=== PATIENT | male | born 1950 | race Caucasian/White ===

== ENCOUNTER 2018-02-09 10:39 | Inpatient (IN) | payer MEDICARE, OTHER ==
[~2018-02-09] VITALS: Ht 175.3 cm; Wt 90.6 kg
--- NOTE | ~2018-02-09 | OP ---
PATIENT NAME: REILLY FULTON MEDICAL RECORD: [id number] :46 LOCATION:D.[facility] D.2306 ADMISSION DATE:02/09/18 SURGEON: ANNE CEDENO MD DATE OF OPERATION: 02/21/2018 PREOPERATIVE DIAGNOSES: 1. Lack of peripheral IV access. 2. Hypotension, on pressor therapy. 3. Ventilatory failure, requiring mechanical ventilation. 4. Alcohol abuse. 5. Confusion. POSTOPERATIVE DIAGNOSES: 1. Lack of peripheral IV access. 2. Hypotension, on pressor therapy. 3. Ventilatory failure requiring mechanical ventilation. 4. Alcohol abuse. 5. Confusion. PROCEDURE: 1. Insertion of right internal jugular triple lumen central venous catheter. 2. Placement of a left radial arterial line for hemodynamic monitoring. SURGEON: Anne Cedeno MD ALARM INSTALLER: None. BLOOD LOSS: Minimal. ANESTHESIA: IV sedation and IV paralytic. The patient is confused. He pulled out his Martinez catheter with the balloon inflated. He is agitated. He is on the ventilator. He will not stop moving. In order to facilitate a more safe insertion of a central venous line as well as an arterial line, I gave the patient IV Diprivan as well IV vecuronium. The IV Diprivan was given first. The entire procedure was performed with the presence of a nurse. OPERATIVE COURSE: The patient was positioned in the Trendelenburg position. The right neck was sterilely prepped and draped. Local anesthetic was used to infiltrate the skin and subcutaneous tissues at the base of the right neck. The right internal jugular vein was percutaneously accessed in an antegrade fashion. A guidewire passed easily. A small skin svitlana was accomplished. A vessel dilator was used to dilate the subcutaneous tract. A 16-cm triple lumen central venous catheter was inserted to the hub. It was sutured in place times 3. All lumens flushed easily and aspirated dark, nonpulsatile blood. The central venous line was then dressed. Attention was then turned to placement of an arterial line. The right wrist was supinated. An Kb's test revealed adequate collateral flow via an ulnar artery. The volar surface of the wrist was sterilely prepped and draped. I attempted to percutaneously access the radial artery and was unsuccessful. I brought onto the sterile field a sterile ultrasound device and even under OPERATIVE REPORT [id number] FULTONREILLY GOTTI ultrasonographic guidance, I was unable to access this very small radial artery. This approach was abandoned. I went around to the left side. The left wrist was supinated. It was sterilely prepped and draped. I could feel a left radial arterial pulse. I percutaneously accessed the radial artery in a retrograde fashion. A guidewire passed easily. A small skin svitlana was accomplished. A long Angiocath type catheter was advanced over the wire. The wire was removed. Pulsatile blood was coming out through the end of the catheter. It was attached to a flush transducer tubing. The arterial line was then sutured in place times 3. A sterile dressing was applied. There was an excellent waveform on the monitor. TRANSINT:[id number] Voice Confirmation ID: [id number] DOCUMENT ID: [id number] ANNE CEDENO MD at 1042 CC: JODEE MELENDEZ MD and BERENICE FARNSWORTH MD [id number] DICTATION DATE: 02/21/18 1540 FURNACE COMBINATION ANALYST: 02/21/18 [address] [facility] [address] [place] [address]
--- NOTE | ~2018-02-09 | CN ---
PATIENT NAME:REILLY FULTON MEDICAL RECORD: [id number] : 46 LOCATION:[facility]2306 ADMIT DATE: 02/09/18 ACCOUNT: [id number] CONSULTING PHYSICIAN: GERI AGUILAR MD REFERRING PHYSICIAN: BERENICE FARNSWORTH MD DATE OF CONSULTATION: 02/16/2018 CONSULT REQUESTING PHYSICIAN: Eliazar Hardy MD REASON FOR CONSULTATION: Acute hypoxic respiratory failure. HISTORY OF PRESENT ILLNESS: Mr. Fulton is a 67-year-old gentleman who was admitted with alcohol intoxication and now his mental status changes and he is in acute hypoxic respiratory failure. The patient also into DTs, he is getting banana bag and his ammonia level was high. REVIEW OF SYSTEMS: Mainly in the history of present illness. PAST MEDICAL HISTORY: 1. Hypertension. 2. Coronary artery disease. 3. Anxiety and depression. 4. Heavy alcoholism. 5. Gastroesophageal reflux disease. PAST SURGICAL HISTORY: 1. Status post pacemaker placement. 2. He has cardiac catheterization and stent placement. PERSONAL AND SOCIAL HISTORY: The patient is a current everyday drinker. He is also a smoker. FAMILY HISTORY: Noncontributory. PHYSICAL EXAMINATION: GENERAL: Now, the patient is very lethargic and he is very sleepy. VITAL SIGNS: The blood pressure 155/105, pulse is 181, respirations 28, temperature 97.2, SpO2 is 94% on 100% nonrebreather. HEENT: Conjunctivae are pink. Sclerae are not icteric. NECK: Neck is supple. No JVD. CHEST: The chest excursion is minimal on both sides. There is a crackle at the right base. HEART: Rhythm regular, normal sound, no murmur. ABDOMEN: Abdomen is soft. Bowel sounds are present. RECTAL: Deferred. EXTREMITIES: No cyanosis, no clubbing. There is 1+ pedal edema. LABORATORY DATA: CBC: WBC 7.3, hemoglobin 12.4, hematocrit 35.8, and platelet count is 129. Chemistry: Sodium 140, potassium 3.6, BUN is 9, creatinine is 1.1, AST is 201, ALT 72, alkaline phosphatase 224. Ammonia level was 69. IMPRESSION: 1. Nhoek-mi-jfetkml hypoxic respiratory failure. 2. Right lower lobe infiltrate with elevated right hemidiaphragm, rule out any obstructive cause. CONSULT REPORT [id number] REILLY FULTON 3. Acute exacerbation of chronic obstructive pulmonary disease. 4. Mental status changes secondary to hepatic encephalopathy. 5. Elevated liver enzymes, possible cirrhosis of the liver. 6. Alcoholism, DTs. 7. Gastroesophageal reflux disease. RECOMMENDATIONS: 1. We will check the CT scan of the chest with contrast. 2. Check the ABG. Continue albuterol/ipratropium nebulizer. 3. Supplemental oxygen. 4. Start empiric Zosyn for questionable aspiration pneumonia. 5. Methylprednisolone IV, Brovana and budesonide nebulizer. Dr. Hardy, thank you for involving me in the care of Mr. Fulton. TRANSINT:[id number] Voice Confirmation ID: [id number] DOCUMENT ID: [id number] GERI AGUILAR MD at 1340 CC: ELIAZAR HARDY MD [id number] DICTATION DATE: 02/16/18 1737 MINERAL SURVEYING TECHNICIAN: 02/16/18 1805 ADM IN [place] [id number] [place] [id number]
--- NOTE | ~2018-02-09 | EC ---
PATIENT:REILLY FULTON DATE OF SERVICE: 02/09/18 SEX: M MEDICAL RECORD: [id number] DATE OF : 46 LOCATION:D[facility] AGE OF PATIENT: 67 ADMISSION DATE: 02/09/18 REFERRING PHYSICIAN: INTERPRETING PHYSICIAN: MICHAEL JEAN MD ECHOCARDIOGRAM REPORT ECHO CHARGES 4 ECHO COMPLETE Date: CLINICAL DIAGNOSIS: TACHYCARDIA - R/O CHF ECHOCARDIOGRAPHIC MEASUREMENTS (adult normal given) AC root (d.<3.7cm) 3.8 cm LV Septum d (<1.2 cm> 1.0 cm Valve Excursion 2.2 cm LV Septum (systole) 1.5 cm Left Atria (s.<4.0cm> 4.3 cm LVPW d(<1.2cm) 1.1 cm RV (d.<2.3cm) 4.4 cm LVPW (sytole) 1.6 cm LV diastole(<5.6CM) 4.9 cm MV E-F(>70mm/sec) cm LV systole 3.2 cm LVOT Diameter 2.1 cm MV exc.(>10mm) cm Est.ejection fraction (50-75%) % DOPPLER: LVIT cm/sec A 44.0 cm/sec E 70.0 cm/sec LA cm/sec RVSP 30.4 mmHg LVOT 89.0 cm/sec AOP1/2T m/s Asc. Ao 108 cm/sec RVOT 33.0 cm/sec RA cm/sec PA 50.0 cm/sec AV Gradient Peak 4.6 mmHg AV Mean 1.7 mmHg AV Area 4.2 cm MV Gradient Peak 2.0 mmHg MV Mean 0.95 mmHg MV Area cm COMMENTS: Receipt And Report Clerk: Maegan KAPADIAOE Cap Coverer: Roney Jean TAPE# PACS Pericardial Effusion N DATE OF SERVICE: 02/21/2018 PROCEDURE: Transthoracic echocardiogram. FINDINGS: 1. The left ventricle has areas of hypokinesis and dyskinesis in the mid anterior and mid posterior segments. The patient has overall ejection fraction of 25%. 2. The left atrium is mildly dilated. 3. Aortic valve is normal. ECHOCARDIOGRAM REPORT [id number] REILLY FULTON 4. The mitral valve has normal structure and function. 5. The tricuspid valve has trace tricuspid regurgitation. The RVSP appears to be 40-50 mmHg. 6. The right ventricle is severely dilated and hypokinetic and there is a pacer artifact in the right ventricle appears. 7. The right atrium appears to be normal size to mildly dilated. IMPRESSION: The patient has evidence of cardiomyopathy, also evidence of pulmonary hypertension and dilatation of the right ventricle. TRANSINT:[id number] Voice Confirmation ID: [id number] DOCUMENT ID: [id number] 02/26/2018 Edited to correct date of service, dm. MICHAEL JEAN MD at 1426 CC: [id number] DICTATION DATE: 02/22/18 1145 STUDENT ACCOUNTS MANAGER: 02/22/18 1201 DIS IN 02/28/18 [place] [id number] [place] [address]
--- NOTE | ~2018-02-09 | OP ---
PATIENT NAME: REILLY FULTON MEDICAL RECORD: [id number] :46 LOCATION:[facility] D.2306 ADMISSION DATE:02/09/18 SURGEON: ANNE BROWN MD DATE OF OPERATION: 02/18/2018 SURGEON: Anne Brown MD ANESTHESIA: Local plus MAC by Mike Mo CRNA. PREOPERATIVE DIAGNOSIS: Urinary retention, inability to be catheterized. PROCEDURE: Cystoscopy, bladder clot evacuation, Martinez catheter insertion over a guidewire. FINDINGS: Proximal urethral tear. Nonobstructive prostate. Blood clots in the bladder. No bladder tumors. Single ureteral orifices bilaterally. ESTIMATED BLOOD LOSS: None. CLINICAL HISTORY: This is a 67-year-old male, who is an alcoholic. He came in intoxicated to the hospital. He has now delirium tremens as well as liver cirrhosis with ascites and hepatic encephalopathy. In his confusion in the intensive care unit, he pulled his Martinez catheter with the balloon inflated. The ICU nursing staff attempted to place a Martinez catheter back in, but it is not draining and it is very bloody. When they scanned his bladder, his bladder volume was 800 mL and there was a concern that he may rupture his bladder. Urology was therefore called for an emergent consultation. His bladder is palpable and percussible up to the umbilicus. He does have ascites also. He has been getting tube feedings through an NG tube. These were held and I actually tried to put the NG tube to suction to decrease the amount of food in the stomach. He does also have aspiration pneumonia as a preexisting condition and therefore, the aspiration risk is high. He does not have any relative that we can speak with and as he is not in the mental condition where he can give consent, we had to do this procedure as an emergency. He is already on antibiotics through the intensive care unit and we did not give him any further antibiotics. DESCRIPTION OF PROCEDURE: The patient was placed on the cystoscopy table and prepped and draped. He was given some IV sedation via anesthesia, a 21-Marshallese cystoscope with 30-degree lens was used for visualization. There is a large tear in the ventral urethra just prior to the bulbar urethra. I managed to get into the true lumen using the cystoscope. The prostatic urethra was nonobstructive. He does have a somewhat elevated bladder neck. Going into the bladder, a large quantity of blood clots were seen. These were removed using the Deneen evacuator. A Sensor wire was then placed into the bladder through the cystoscope. The scope was then removed, leaving the wire in place. A 16-Marshallese [place] Martinez catheter was inserted into the bladder over the wire. The balloon was inflated with 10 mL of sterile water. The Sensor wire was then removed entirely. The balloon catheter was put to bag drainage. The patient will be transferred back to the intensive care unit. TRANSINT:[id number] Voice Confirmation ID: [id number] DOCUMENT ID: [id number] OPERATIVE REPORT [id number] REILLY FULTON, ANNE Rodriguez MD at 1428 CC: [id number] DICTATION DATE: 02/18/18 1225 EQUIPMENT DRIVER: 02/18/18 1251 ADM IN [place] [id number] [place] [address]
[2018-02-09 11:28] LABS: BASOPHILS 0.1 % (0-2); EOSINOPHILS 0.7 % (0-7); HEMATOCRIT 36.7 % (42.0-54.0); HEMOGLOBIN 13.5 g/dL (13.5-17.5); IMMATURE GRANULOCYTES 0.4 % (0-5); LYMPHOCYTES 7.5 % (15-50); MCH 39.5 pg (26.0-34.0); MCHC 36.8 g/dL (31.0-37.0); MCV 107.3 fL (80.0-100.0); MEAN PLATELET VOLUME 10.6 fL (7.4-10.4); MONOCYTES 5.7 % (2-11); NEUTROPHILS 85.6 % (40-80); PLATELET COUNT 156 10x3/uL (130-400); RBC 3.42 10x6/uL (4.20-6.10); RDW 14.3 % (11.5-14.5)
[2018-02-09 11:38] LABS: INR 1.65 (0.85-1.17)
[2018-02-09 11:42] LABS: ALKALINE PHOSPHATASE 340 U/L (46-116); ALT (SGPT) 41 U/L (10-68); BILIRUBIN - TOTAL 2.32 mg/dL (0.2-1.3); CALC OSMOLALITY 243 mosm/kg (275-300); CALCIUM 7.9 mg/dL (8.5-10.1); CREATININE - SERUM 0.9 mg/dL (0.6-1.3); GLUCOSE 122 mg/dL (74-106); MAGNESIUM - SERUM 1.2 mg/dL (1.8-2.4); POTASSIUM - SERUM 3.8 mmol/L (3.5-5.1); PROTEIN - SERUM 6.9 g/dL (6.4-8.2); SODIUM 122 mmol/L (136-145); UREA NITROGEN 5 mg/dL (7-18); eGFR NON AFRICAN AMERICAN 89 mL/min (90-120)
[2018-02-09 11:49] LABS: CHLORIDE - SERUM 85 mmol/L (98-107)
[2018-02-10] VITALS (7 sets, daily range): BP systolic 86–113; BP diastolic 54–72; BMI 25.1
[2018-02-10 12:51] LABS: % SATURATION 100 % (15-55); IRON 82 ug/dl (35-150); TOTAL IRON BIND CAPACITY 82 ug/dl (260-445); UNSAT IRON BIND CAPACITY 0 ug/dl (150-375)
[2018-02-10 13:13] LABS: PHOSPHOROUS 2.6 mg/dL (2.5-4.9)
[2018-02-11 04:29] VITALS: BP 101/47
[2018-02-11 06:08] LABS: BASOPHILS 0.2 % (0-2); EOSINOPHILS 0.8 % (0-7); HEMATOCRIT 33.6 % (42.0-54.0); HEMOGLOBIN 12.1 g/dL (13.5-17.5); IMMATURE GRANULOCYTES 0.4 % (0-5); MCH 38.5 pg (26.0-34.0); MEAN PLATELET VOLUME 10.8 fL (7.4-10.4); MONOCYTES 6.8 % (2-11); NEUTROPHILS 81.8 % (40-80); PLATELET COUNT 141 10x3/uL (130-400); RBC 3.14 10x6/uL (4.20-6.10); RDW 14.3 % (11.5-14.5); WBC 11.1 10x3/uL (4.8-10.8)
[2018-02-11 06:09] LABS: INR 1.41 (0.85-1.17); PROTIME 16.7 SECONDS (11.6-15.0)
[2018-02-11 06:16] LABS: ALBUMIN 1.6 g/dL (3.4-5.0); ALKALINE PHOSPHATASE 273 U/L (46-116); ALT (SGPT) 37 U/L (10-68); BILIRUBIN - TOTAL 2.38 mg/dL (0.2-1.3); CALCIUM 7.8 mg/dL (8.5-10.1); CARBON DIOXIDE 29.2 mmol/L (21.0-32.0); CHLORIDE - SERUM 93 mmol/L (98-107); CREATININE - SERUM 0.8 mg/dL (0.6-1.3); GLUCOSE 103 mg/dL (74-106); MAGNESIUM - SERUM 1.5 mg/dL (1.8-2.4); PHOSPHOROUS 2.7 mg/dL (2.5-4.9); PROTEIN - SERUM 5.8 g/dL (6.4-8.2); SODIUM 127 mmol/L (136-145); eGFR NON AFRICAN AMERICAN > 90 mL/min (90-120)
[2018-02-11 06:17] LABS: CALC OSMOLALITY 252 mosm/kg (275-300); UREA NITROGEN 7 mg/dL (7-18)
[2018-02-11 08:19] LABS: FOLATE (FOLIC ACID) - SERUM 2.4 ng/mL (>3.0)
[2018-02-11 09:11] VITALS: BP 119/78
[2018-02-11 11:18] LABS: HEPATITIS C ANTIBODY 0.1 (0.0-0.9)
[2018-02-11 12:46] VITALS: BP 121/71
[2018-02-11 16:46] VITALS: BP 89/42
[2018-02-11 21:09] VITALS: BP 136/90
[2018-02-12 04:42] VITALS: BP 148/84
[2018-02-12 05:51] LABS: BASOPHILS 0.3 % (0-2); EOSINOPHILS 1.2 % (0-7); HEMATOCRIT 33.8 % (42.0-54.0); HEMOGLOBIN 11.9 g/dL (13.5-17.5); IMMATURE GRANULOCYTES 0.3 % (0-5); LYMPHOCYTES 13.7 % (15-50); MCHC 35.2 g/dL (31.0-37.0); MEAN PLATELET VOLUME 10.8 fL (7.4-10.4); MONOCYTES 7.2 % (2-11); NEUTROPHILS 77.3 % (40-80); PLATELET COUNT 149 10x3/uL (130-400); RBC 3.13 10x6/uL (4.20-6.10); RDW 14.7 % (11.5-14.5); WBC 9.5 10x3/uL (4.8-10.8)
[2018-02-12 06:05] LABS: ALBUMIN 1.7 g/dL (3.4-5.0); ALKALINE PHOSPHATASE 284 U/L (46-116); ALT (SGPT) 46 U/L (10-68); BILIRUBIN - TOTAL 2.09 mg/dL (0.2-1.3); CALC OSMOLALITY 258 mosm/kg (275-300); CALCIUM 7.8 mg/dL (8.5-10.1); CHLORIDE - SERUM 96 mmol/L (98-107); CREATININE - SERUM 0.9 mg/dL (0.6-1.3); GLUCOSE 91 mg/dL (74-106); MAGNESIUM - SERUM 1.8 mg/dL (1.8-2.4); PHOSPHOROUS 2.7 mg/dL (2.5-4.9); PROTEIN - SERUM 5.9 g/dL (6.4-8.2); SODIUM 130 mmol/L (136-145); UREA NITROGEN 7 mg/dL (7-18); eGFR NON AFRICAN AMERICAN 89 mL/min (90-120)
[2018-02-12 06:06] LABS: POTASSIUM - SERUM 3.8 mmol/L (3.5-5.1)
[2018-02-12 06:13] LABS: INR 1.34 (0.85-1.17); PROTIME 16.1 SECONDS (11.6-15.0)
[2018-02-12 09:37] VITALS: BP 121/75
[2018-02-12 17:05] VITALS: BP 93/65
[2018-02-12 21:39] VITALS: BP 128/87
[2018-02-13] MEDS ORDERED: FUROSEMIDE20 MG PO (02:40)
[2018-02-13 05:32] LABS: BASOPHILS 0.4 % (0-2); EOSINOPHILS 1.2 % (0-7); HEMATOCRIT 31.3 % (42.0-54.0); HEMOGLOBIN 11.4 g/dL (13.5-17.5); IMMATURE GRANULOCYTES 0.3 % (0-5); MCHC 36.4 g/dL (31.0-37.0); MCV 107.2 fL (80.0-100.0); MEAN PLATELET VOLUME 10.3 fL (7.4-10.4); MONOCYTES 8.2 % (2-11); NEUTROPHILS 75.9 % (40-80); PLATELET COUNT 118 10x3/uL (130-400); RBC 2.92 10x6/uL (4.20-6.10); RDW 14.8 % (11.5-14.5); WBC 7.6 10x3/uL (4.8-10.8)
[2018-02-13 05:34] VITALS: BP 134/74
[2018-02-13 05:38] LABS: INR 1.42 (0.85-1.17); PROTIME 16.9 SECONDS (11.6-15.0)
[2018-02-13 05:51] LABS: ALBUMIN 1.6 g/dL (3.4-5.0); ALKALINE PHOSPHATASE 239 U/L (46-116); ALT (SGPT) 53 U/L (10-68); CALC OSMOLALITY 261 mosm/kg (275-300); CALCIUM 7.7 mg/dL (8.5-10.1); CARBON DIOXIDE 26.2 mmol/L (21.0-32.0); CHLORIDE - SERUM 99 mmol/L (98-107); CREATININE - SERUM 0.7 mg/dL (0.6-1.3); GLUCOSE 88 mg/dL (74-106); MAGNESIUM - SERUM 1.7 mg/dL (1.8-2.4); PHOSPHOROUS 2.8 mg/dL (2.5-4.9); POTASSIUM - SERUM 3.6 mmol/L (3.5-5.1); PROTEIN - SERUM 5.6 g/dL (6.4-8.2); SODIUM 132 mmol/L (136-145); UREA NITROGEN 8 mg/dL (7-18); eGFR NON AFRICAN AMERICAN > 90 mL/min (90-120)
[2018-02-13 08:09] VITALS: BP 134/90
[2018-02-13 12:52] VITALS: BP 104/71
[2018-02-13 13:30] VITALS: BMI 25.1
[2018-02-13 16:55] VITALS: BP 135/83
[2018-02-13 22:49] VITALS: BP 122/85
[2018-02-14 02:50] VITALS: BP 111/81
[2018-02-14 05:04] LABS: BASOPHILS 0.3 % (0-2); EOSINOPHILS 1.2 % (0-7); HEMOGLOBIN 12.1 g/dL (13.5-17.5); IMMATURE GRANULOCYTES 0.1 % (0-5); LYMPHOCYTES 14.5 % (15-50); MCH 38.5 pg (26.0-34.0); MCHC 35.6 g/dL (31.0-37.0); MCV 108.3 fL (80.0-100.0); MEAN PLATELET VOLUME 10.2 fL (7.4-10.4); NEUTROPHILS 75.9 % (40-80); PLATELET COUNT 124 10x3/uL (130-400); RBC 3.14 10x6/uL (4.20-6.10); RDW 15.2 % (11.5-14.5); WBC 7.4 10x3/uL (4.8-10.8)
[2018-02-14 05:32] LABS: ALBUMIN 1.8 g/dL (3.4-5.0); ALKALINE PHOSPHATASE 254 U/L (46-116); ALT (SGPT) 65 U/L (10-68); BILIRUBIN - TOTAL 2.07 mg/dL (0.2-1.3); CALC OSMOLALITY 263 mosm/kg (275-300); CARBON DIOXIDE 26.9 mmol/L (21.0-32.0); CHLORIDE - SERUM 97 mmol/L (98-107); GLUCOSE 92 mg/dL (74-106); INR 1.49 (0.85-1.17); MAGNESIUM - SERUM 1.7 mg/dL (1.8-2.4); POTASSIUM - SERUM 3.7 mmol/L (3.5-5.1); PROTEIN - SERUM 6.1 g/dL (6.4-8.2); PROTIME 17.5 SECONDS (11.6-15.0); SODIUM 133 mmol/L (136-145); UREA NITROGEN 6 mg/dL (7-18); eGFR NON AFRICAN AMERICAN 89 mL/min (90-120)
[2018-02-14 05:33] LABS: CREATININE - SERUM 0.9 mg/dL (0.6-1.3)
[2018-02-14 05:54] VITALS: BP 140/89
[2018-02-14 07:41] VITALS: BP 124/74
[2018-02-14 11:10] VITALS: BP 124/74
[2018-02-14 15:16] VITALS: BP 126/72
[2018-02-14 22:24] VITALS: BP 139/89
[2018-02-15 02:24] VITALS: BP 134/74
[2018-02-15 05:22] LABS: ALBUMIN 1.8 g/dL (3.4-5.0); ALKALINE PHOSPHATASE 235 U/L (46-116); ALT (SGPT) 68 U/L (10-68); CALC OSMOLALITY 274 mosm/kg (275-300); CALCIUM 8.1 mg/dL (8.5-10.1); CARBON DIOXIDE 26.2 mmol/L (21.0-32.0); CHLORIDE - SERUM 103 mmol/L (98-107); CREATININE - SERUM 0.9 mg/dL (0.6-1.3); GLUCOSE 117 mg/dL (74-106); PHOSPHOROUS 3.1 mg/dL (2.5-4.9); POTASSIUM - SERUM 3.8 mmol/L (3.5-5.1); PROTEIN - SERUM 6.2 g/dL (6.4-8.2); SODIUM 138 mmol/L (136-145); eGFR NON AFRICAN AMERICAN 89 mL/min (90-120)
[2018-02-15 05:23] LABS: UREA NITROGEN 8 mg/dL (7-18)
[2018-02-15 05:24] LABS: BASOPHILS 0.3 % (0-2); EOSINOPHILS 0.9 % (0-7); HEMATOCRIT 35.4 % (42.0-54.0); HEMOGLOBIN 12.5 g/dL (13.5-17.5); IMMATURE GRANULOCYTES 0.1 % (0-5); LYMPHOCYTES 13.6 % (15-50); MCH 38.5 pg (26.0-34.0); MCHC 35.3 g/dL (31.0-37.0); MCV 108.9 fL (80.0-100.0); MEAN PLATELET VOLUME 10.2 fL (7.4-10.4); MONOCYTES 7.8 % (2-11); NEUTROPHILS 77.3 % (40-80); PLATELET COUNT 138 10x3/uL (130-400); RBC 3.25 10x6/uL (4.20-6.10); RDW 15.2 % (11.5-14.5); WBC 8.7 10x3/uL (4.8-10.8)
[2018-02-15 05:25] VITALS: BP 138/68
[2018-02-15 05:26] LABS: INR 1.43 (0.85-1.17)
[2018-02-15 08:00] VITALS: BP 113/71
[2018-02-15 11:30] VITALS: BP 114/71
[2018-02-15 15:30] VITALS: BP 112/80
[2018-02-15 22:17] VITALS: BP 111/88
[2018-02-16] VITALS (10 sets, daily range): BP systolic 111–155; BP diastolic 80–105
[2018-02-16 06:05] LABS: BASOPHILS 0.3 % (0-2); HEMATOCRIT 35.8 % (42.0-54.0); HEMOGLOBIN 12.4 g/dL (13.5-17.5); IMMATURE GRANULOCYTES 0.3 % (0-5); LYMPHOCYTES 14.8 % (15-50); MCHC 34.6 g/dL (31.0-37.0); MCV 109.8 fL (80.0-100.0); MEAN PLATELET VOLUME 10.5 fL (7.4-10.4); MONOCYTES 8.6 % (2-11); PLATELET COUNT 129 10x3/uL (130-400); RBC 3.26 10x6/uL (4.20-6.10); RDW 15.6 % (11.5-14.5); WBC 7.3 10x3/uL (4.8-10.8)
[2018-02-16 06:34] LABS: ALBUMIN 1.9 g/dL (3.4-5.0); ANION GAP 12.2 mmol/L (8-16); BILIRUBIN - TOTAL 1.9 mg/dL (0.2-1.3); CALCIUM 8.3 mg/dL (8.5-10.1); CARBON DIOXIDE 26.4 mmol/L (21.0-32.0); CREATININE - SERUM 1.1 mg/dL (0.6-1.3); POTASSIUM - SERUM 3.6 mmol/L (3.5-5.1); PROTEIN - SERUM 6.3 g/dL (6.4-8.2)
[2018-02-16 18:53] LABS: APPEARANCE HAZY (CLEAR); COLOR AMBER (YELLOW)
[2018-02-16 18:54] LABS: BILIRUBIN NEGATIVE (NEGATIVE); GLUCOSE NEGATIVE (NEGATIVE); KETONE NEGATIVE (NEGATIVE); NITRITE NEGATIVE (NEGATIVE); PROTEIN NEGATIVE (NEGATIVE); UROBILINOGEN NORMAL (NORMAL)
[2018-02-16 18:55] LABS: AMORPHOUS SEDIMENT <1+ /lpf (NONE SEEN); BACTERIA MANY /hpf (NONE SEEN); WHITE CELLS - URINE 0-5 /hpf (0-5)
[2018-02-17] VITALS (24 sets, daily range): BP systolic 95–159; BP diastolic 66–109; Ht 175.3 cm; Wt 90.6 kg
[2018-02-17 04:16] LABS: BASOPHILS 0 % (0-2); EOSINOPHILS 0 % (0-7); HEMATOCRIT 33.9 % (42.0-54.0); HEMOGLOBIN 11.8 g/dL (13.5-17.5); IMMATURE GRANULOCYTES 0.2 % (0-5); LYMPHOCYTES 2.9 % (15-50); MCH 38.2 pg (26.0-34.0); MCHC 34.8 g/dL (31.0-37.0); MCV 109.7 fL (80.0-100.0); MEAN PLATELET VOLUME 10.7 fL (7.4-10.4); MONOCYTES 2.9 % (2-11); PLATELET COUNT 108 10x3/uL (130-400); RBC 3.09 10x6/uL (4.20-6.10); RDW 15.7 % (11.5-14.5)
[2018-02-17 04:22] LABS: WBC 12.6 10x3/uL (4.8-10.8)
[2018-02-17 04:38] LABS: ALBUMIN 1.8 g/dL (3.4-5.0); ANION GAP 14.8 mmol/L (8-16); BILIRUBIN - TOTAL 2.41 mg/dL (0.2-1.3); CALCIUM 8.2 mg/dL (8.5-10.1); CARBON DIOXIDE 26.1 mmol/L (21.0-32.0); CREATININE - SERUM 1.1 mg/dL (0.6-1.3); POTASSIUM - SERUM 3.9 mmol/L (3.5-5.1); PROTEIN - SERUM 6.2 g/dL (6.4-8.2)
[2018-02-18] VITALS (27 sets, daily range): BP systolic 116–154; BP diastolic 83–111
[2018-02-18 04:37] LABS: BASOPHILS 0.1 % (0-2); EOSINOPHILS 0 % (0-7); HEMOGLOBIN 12.7 g/dL (13.5-17.5); IMMATURE GRANULOCYTES 0.2 % (0-5); LYMPHOCYTES 3.3 % (15-50); MCH 38.1 pg (26.0-34.0); MCHC 34.3 g/dL (31.0-37.0); MCV 111.1 fL (80.0-100.0); MEAN PLATELET VOLUME 10.3 fL (7.4-10.4); MONOCYTES 2.8 % (2-11); NEUTROPHILS 93.6 % (40-80); RBC 3.33 10x6/uL (4.20-6.10); RDW 15.9 % (11.5-14.5); WBC 13.6 10x3/uL (4.8-10.8)
[2018-02-18 04:41] LABS: PLATELET COUNT 138 10x3/uL (130-400)
[2018-02-18 05:02] LABS: ALBUMIN 1.9 g/dL (3.4-5.0); ANION GAP 13.9 mmol/L (8-16); BILIRUBIN - TOTAL 1.8 mg/dL (0.2-1.3); CALCIUM 8.3 mg/dL (8.5-10.1); CARBON DIOXIDE 26.2 mmol/L (21.0-32.0); CHOL - HDL RATIO 10.5 ratio (2.3-4.9); CREATININE - SERUM 1.4 mg/dL (0.6-1.3); LDL-HDL RATIO 8.2 ratio (1.5-3.5); POTASSIUM - SERUM 3.1 mmol/L (3.5-5.1); PROTEIN - SERUM 6.7 g/dL (6.4-8.2); THYROID STIMULATING HORMONE 13.91 uIU/mL (0.36-3.74)
[2018-02-19] VITALS (23 sets, daily range): BP systolic 102–151; BP diastolic 58–99
[2018-02-19 04:38] LABS: BASOPHILS 0 % (0-2); EOSINOPHILS 0 % (0-7); HEMATOCRIT 40.6 % (42.0-54.0); HEMOGLOBIN 13.6 g/dL (13.5-17.5); IMMATURE GRANULOCYTES 0.2 % (0-5); LYMPHOCYTES 2.9 % (15-50); MCHC 33.5 g/dL (31.0-37.0); MEAN PLATELET VOLUME 10.7 fL (7.4-10.4); MONOCYTES 3.3 % (2-11); NEUTROPHILS 93.6 % (40-80); PLATELET COUNT 139 10x3/uL (130-400); RBC 3.58 10x6/uL (4.20-6.10); RDW 15.9 % (11.5-14.5); WBC 13.1 10x3/uL (4.8-10.8)
[2018-02-19 04:42] LABS: MCV 113.4 fL (80.0-100.0)
[2018-02-19 04:47] LABS: INR 1.35 (0.85-1.17); PROTIME 16.2 SECONDS (11.6-15.0)
[2018-02-19 05:02] LABS: ALBUMIN 1.9 g/dL (3.4-5.0); ANION GAP 12.5 mmol/L (8-16); BILIRUBIN - TOTAL 1.5 mg/dL (0.2-1.3); CALCIUM 8.4 mg/dL (8.5-10.1); CARBON DIOXIDE 27.6 mmol/L (21.0-32.0); CREATININE - SERUM 1.2 mg/dL (0.6-1.3); MAGNESIUM - SERUM 2.8 mg/dL (1.8-2.4); POTASSIUM - SERUM 4.1 mmol/L (3.5-5.1); PROTEIN - SERUM 6.9 g/dL (6.4-8.2)
[2018-02-19 06:14] LABS: FOLATE (FOLIC ACID) - SERUM >20.0 ng/mL (>3.0)
[2018-02-20] VITALS (25 sets, daily range): BP systolic 87–127; BP diastolic 68–99
[2018-02-20 03:13] LABS: BASOPHILS 0.1 % (0-2); EOSINOPHILS 0.1 % (0-7); HEMATOCRIT 39.5 % (42.0-54.0); IMMATURE GRANULOCYTES 0.3 % (0-5); LYMPHOCYTES 6.2 % (15-50); MCH 37.7 pg (26.0-34.0); MCHC 32.9 g/dL (31.0-37.0); MCV 114.5 fL (80.0-100.0); MEAN PLATELET VOLUME 10.8 fL (7.4-10.4); MONOCYTES 5.4 % (2-11); NEUTROPHILS 87.9 % (40-80); PLATELET COUNT 133 10x3/uL (130-400); RBC 3.45 10x6/uL (4.20-6.10); RDW 16.4 % (11.5-14.5); WBC 12.3 10x3/uL (4.8-10.8)
[2018-02-20 03:28] LABS: ALBUMIN 1.8 g/dL (3.4-5.0); ANION GAP 11.4 mmol/L (8-16); BILIRUBIN - TOTAL 1.28 mg/dL (0.2-1.3); CALCIUM 8.6 mg/dL (8.5-10.1); CARBON DIOXIDE 30.1 mmol/L (21.0-32.0); CREATININE - SERUM 1.2 mg/dL (0.6-1.3); POTASSIUM - SERUM 4.5 mmol/L (3.5-5.1); PROTEIN - SERUM 6.4 g/dL (6.4-8.2)
[2018-02-21] VITALS (53 sets, daily range): BP systolic 79–134; BP diastolic 58–95
[2018-02-21 03:36] LABS: BASOPHILS 0.1 % (0-2); EOSINOPHILS 0.3 % (0-7); HEMATOCRIT 41.2 % (42.0-54.0); IMMATURE GRANULOCYTES 0.6 % (0-5); MCH 38.4 pg (26.0-34.0); MCV 112.9 fL (80.0-100.0); MEAN PLATELET VOLUME 11.1 fL (7.4-10.4); MONOCYTES 5.3 % (2-11); NEUTROPHILS 86.7 % (40-80); PLATELET COUNT 126 10x3/uL (130-400); RBC 3.65 10x6/uL (4.20-6.10); RDW 16.2 % (11.5-14.5); WBC 14.4 10x3/uL (4.8-10.8)
[2018-02-21 03:41] LABS: INR 1.31 (0.85-1.17); PROTIME 15.8 SECONDS (11.6-15.0)
[2018-02-21 03:53] LABS: ALBUMIN 1.7 g/dL (3.4-5.0); ANION GAP 7.7 mmol/L (8-16); BILIRUBIN - TOTAL 1.31 mg/dL (0.2-1.3); CALCIUM 8.3 mg/dL (8.5-10.1); CARBON DIOXIDE 29.3 mmol/L (21.0-32.0); CREATININE - SERUM 1.1 mg/dL (0.6-1.3); PROTEIN - SERUM 6.5 g/dL (6.4-8.2)
[2018-02-21 06:40] LABS: PHOSPHOROUS 1.6 mg/dL (2.5-4.9)
[2018-02-21 11:43] LABS: CKMB 1.4 U/L (0.0-3.6); CREATINE KINASE 31 UL (21-232)
[2018-02-21 11:46] LABS: TROPONIN-I 0.174 ng/mL (0.000-0.060)
[2018-02-22] VITALS (83 sets, daily range): BP systolic 87–155; BP diastolic 51–114
[2018-02-22 04:37] LABS: BASOPHILS 0.1 % (0-2); EOSINOPHILS 0 % (0-7); HEMATOCRIT 37.1 % (42.0-54.0); HEMOGLOBIN 12.5 g/dL (13.5-17.5); IMMATURE GRANULOCYTES 0.9 % (0-5); LYMPHOCYTES 4.8 % (15-50); MCH 37.8 pg (26.0-34.0); MCHC 33.7 g/dL (31.0-37.0); MCV 112.1 fL (80.0-100.0); MEAN PLATELET VOLUME 11.5 fL (7.4-10.4); MONOCYTES 4.6 % (2-11); NEUTROPHILS 89.6 % (40-80); PLATELET COUNT 146 10x3/uL (130-400); RBC 3.31 10x6/uL (4.20-6.10); RDW 16.2 % (11.5-14.5)
[2018-02-22 04:52] LABS: INR 1.44 (0.85-1.17)
[2018-02-22 04:55] LABS: ALBUMIN 1.7 g/dL (3.4-5.0); ANION GAP 13.9 mmol/L (8-16); BILIRUBIN - TOTAL 1.39 mg/dL (0.2-1.3); CARBON DIOXIDE 23.5 mmol/L (21.0-32.0); CREATININE - SERUM 1.4 mg/dL (0.6-1.3); MAGNESIUM - SERUM 2.7 mg/dL (1.8-2.4); POTASSIUM - SERUM 4.4 mmol/L (3.5-5.1)
[2018-02-22 16:32] LABS: PROTEIN - BODY FLUID 0.8 G/DL
[2018-02-22 16:56] LABS: MACROPHAGES BF 10 %; MESOTHELIALS BF 48 %; NEUT - BF 21 %
[2018-02-23] VITALS (51 sets, daily range): BP systolic 75–140; BP diastolic 43–75
[2018-02-23 06:30] LABS: BILIRUBIN - TOTAL 1.19 mg/dL (0.2-1.3); CALCIUM 7.7 mg/dL (8.5-10.1); CARBON DIOXIDE 24.9 mmol/L (21.0-32.0); CREATININE - SERUM 1.5 mg/dL (0.6-1.3); MAGNESIUM - SERUM 3.1 mg/dL (1.8-2.4); PROTEIN - SERUM 5.4 g/dL (6.4-8.2)
[2018-02-23 06:41] LABS: ALBUMIN 2.2 g/dL (3.4-5.0); ANION GAP 14.7 mmol/L (8-16); POTASSIUM - SERUM 3.6 mmol/L (3.5-5.1)
[2018-02-23 07:02] LABS: BASOPHILS 0 % (0-2); EOSINOPHILS 0 % (0-7); HEMOGLOBIN 10.3 g/dL (13.5-17.5); IMMATURE GRANULOCYTES 0.9 % (0-5); LYMPHOCYTES 6.2 % (15-50); MCH 37.3 pg (26.0-34.0); MCHC 33.2 g/dL (31.0-37.0); MCV 112.3 fL (80.0-100.0); MEAN PLATELET VOLUME 11.5 fL (7.4-10.4); MONOCYTES 7.1 % (2-11); NEUTROPHILS 85.8 % (40-80); PLATELET COUNT 61 10x3/uL (130-400); RBC 2.76 10x6/uL (4.20-6.10); RDW 16.7 % (11.5-14.5); WBC 5.7 10x3/uL (4.8-10.8)
[2018-02-23 08:26] LABS: PLATELET ESTIMATE DECREASED
[2018-02-24] VITALS (24 sets, daily range): BP systolic 76–124; BP diastolic 45–73
[2018-02-24 04:39] LABS: BASOPHILS 0 % (0-2); EOSINOPHILS 0 % (0-7); HEMATOCRIT 28.6 % (42.0-54.0); HEMOGLOBIN 9.6 g/dL (13.5-17.5); IMMATURE GRANULOCYTES 0.7 % (0-5); LYMPHOCYTES 7.3 % (15-50); MCH 37.2 pg (26.0-34.0); MCHC 33.6 g/dL (31.0-37.0); MCV 110.9 fL (80.0-100.0); MEAN PLATELET VOLUME 11.8 fL (7.4-10.4); MONOCYTES 6.5 % (2-11); NEUTROPHILS 85.5 % (40-80); PLATELET COUNT 68 10x3/uL (130-400); RBC 2.58 10x6/uL (4.20-6.10)
[2018-02-24 04:57] LABS: ALBUMIN 2.2 g/dL (3.4-5.0); ANION GAP 12.3 mmol/L (8-16); BILIRUBIN - TOTAL 0.97 mg/dL (0.2-1.3); CALCIUM 7.7 mg/dL (8.5-10.1); CARBON DIOXIDE 25.4 mmol/L (21.0-32.0); CREATININE - SERUM 1.4 mg/dL (0.6-1.3); MAGNESIUM - SERUM 2.9 mg/dL (1.8-2.4); PHOSPHOROUS 3.6 mg/dL (2.5-4.9); POTASSIUM - SERUM 3.7 mmol/L (3.5-5.1); PROTEIN - SERUM 5.2 g/dL (6.4-8.2)
[2018-02-24 04:59] LABS: INR 1.44 (0.85-1.17); PROTIME 17.1 SECONDS (11.6-15.0)
[2018-02-24 15:23] LABS: AFB SPECIMEN PROCESSING Concentration (())
[2018-02-25] VITALS (48 sets, daily range): BP systolic 78–121; BP diastolic 44–81
[2018-02-25 04:22] LABS: BASOPHILS 0.1 % (0-2); EOSINOPHILS 0.4 % (0-7); HEMATOCRIT 30.5 % (42.0-54.0); HEMOGLOBIN 10.4 g/dL (13.5-17.5); IMMATURE GRANULOCYTES 1.1 % (0-5); MCH 38.1 pg (26.0-34.0); MCHC 34.1 g/dL (31.0-37.0); MCV 111.7 fL (80.0-100.0); MEAN PLATELET VOLUME 12.6 fL (7.4-10.4); MONOCYTES 6.2 % (2-11); NEUTROPHILS 83.2 % (40-80); PLATELET COUNT 64 10x3/uL (130-400); RBC 2.73 10x6/uL (4.20-6.10); RDW 17.2 % (11.5-14.5)
[2018-02-25 04:39] LABS: WBC 9.6 10x3/uL (4.8-10.8)
[2018-02-25 04:44] LABS: ALBUMIN 2.1 g/dL (3.4-5.0); ANION GAP 12.1 mmol/L (8-16); APTT 40.3 SECONDS (22.8-39.4); BILIRUBIN - TOTAL 0.9 mg/dL (0.2-1.3); CALCIUM 7.8 mg/dL (8.5-10.1); CARBON DIOXIDE 24.8 mmol/L (21.0-32.0); CREATININE - SERUM 1.6 mg/dL (0.6-1.3); INR 1.35 (0.85-1.17); MAGNESIUM - SERUM 2.7 mg/dL (1.8-2.4); PHOSPHOROUS 3.3 mg/dL (2.5-4.9); POTASSIUM - SERUM 3.9 mmol/L (3.5-5.1); PROTEIN - SERUM 5.4 g/dL (6.4-8.2); PROTIME 16.2 SECONDS (11.6-15.0)
[2018-02-25 04:45] LABS: D-DIMER-QUANTITATIVE 1.55 ug/mLFEU (0.20-0.54)
[2018-02-25 11:18] LABS: FUNGUS STAIN Final report (())
[2018-02-26] VITALS (56 sets, daily range): BP systolic 46–151; BP diastolic 21–87
[2018-02-26 04:42] LABS: BASOPHILS 0.1 % (0-2); EOSINOPHILS 0.1 % (0-7); HEMATOCRIT 30.4 % (42.0-54.0); HEMOGLOBIN 10.2 g/dL (13.5-17.5); IMMATURE GRANULOCYTES 0.8 % (0-5); LYMPHOCYTES 3.9 % (15-50); MCH 37.4 pg (26.0-34.0); MCHC 33.6 g/dL (31.0-37.0); MCV 111.4 fL (80.0-100.0); MEAN PLATELET VOLUME 12.5 fL (7.4-10.4); NEUTROPHILS 90.1 % (40-80); PLATELET COUNT 56 10x3/uL (130-400); RBC 2.73 10x6/uL (4.20-6.10); RDW 17.5 % (11.5-14.5); WBC 10.9 10x3/uL (4.8-10.8)
[2018-02-26 04:54] LABS: INR 1.32 (0.85-1.17); PROTIME 15.9 SECONDS (11.6-15.0)
[2018-02-26 04:55] LABS: APTT 41.2 SECONDS (22.8-39.4)
[2018-02-26 05:13] LABS: ALBUMIN 2.2 g/dL (3.4-5.0); ANION GAP 14.3 mmol/L (8-16); BILIRUBIN - TOTAL 0.9 mg/dL (0.2-1.3); CALCIUM 7.8 mg/dL (8.5-10.1); CARBON DIOXIDE 23.3 mmol/L (21.0-32.0); CREATININE - SERUM 1.4 mg/dL (0.6-1.3); MAGNESIUM - SERUM 2.9 mg/dL (1.8-2.4); PROTEIN - SERUM 5.5 g/dL (6.4-8.2)
[2018-02-26 05:15] LABS: POTASSIUM - SERUM 4.6 mmol/L (3.5-5.1)
[2018-02-27 00:40] VITALS: BP 90/59
[2018-02-27 08:09] VITALS: BP 105/66
[2018-02-27 16:01] VITALS: BP 100/61
[2018-02-27 19:49] VITALS: BP 108/69
[2018-02-28 04:22] VITALS: BP 78/50
[2018-03-02 16:11] LABS: FUNGUS STAIN RESULT 1 Yeast observed (())
[2018-03-23 15:23] LABS: FUNGUS CULTURE RESULT 1 Candida albicans (()); FUNGUS MYCOLOGY CULTURE Final report (())
[2018-04-20 18:09] LABS: ACID FAST CULTURE Negative (()); ACID FAST SMEAR Negative (())
== END 2018-02-28 06:35 | DRG 432 ==
LOC: D.ER 10:39 → D.ICU 20:37 → D.MS 20:37 → D.SDCHOLD 02-10 12:44 → D.ICU 02-16 19:06 → D.MS 02-26 20:38
PROVIDERS: Emergency Medicine; Family Medicine Adult Medicine; Internal Medicine Gastroenterology; Internal Medicine Nephrology; Internal Medicine Pulmonary Disease; Urology
PROC: 0TCB8ZZ Extirpation of Matter from Bladder, Via Natural or Artificial Opening Endoscopic (ICD-10-PCS; principal; 2018-02-18 12:30)
PROC: 05HM33Z Insertion of Infusion Device into Right Internal Jugular Vein, Percutaneous Approach (ICD-10-PCS; 2018-02-21)
PROC: 4A133B1 Monitoring of Arterial Pressure, Peripheral, Percutaneous Approach (ICD-10-PCS; 2018-02-21)
PROC: 4A133J1 Monitoring of Arterial Pulse, Peripheral, Percutaneous Approach (ICD-10-PCS; 2018-02-21)
PROC: 0W9G3ZZ Drainage of Peritoneal Cavity, Percutaneous Approach (ICD-10-PCS; 2018-02-22)
PROC: 0B978ZZ Drainage of Left Main Bronchus, Via Natural or Artificial Opening Endoscopic (ICD-10-PCS; 2018-02-22)
PROC: 0B938ZZ Drainage of Right Main Bronchus, Via Natural or Artificial Opening Endoscopic (ICD-10-PCS; 2018-02-22)
DX: K70.40 Alcoholic hepatic failure without coma (principal); E43 Unspecified severe protein-calorie malnutrition; J15.6 Pneumonia due to other Gram-negative bacteria; I50.23 Acute on chronic systolic (congestive) heart failure; J96.21 Acute and chronic respiratory failure with hypoxia; E87.1 Hypo-osmolality and hyponatremia; D68.9 Coagulation defect, unspecified; E87.0 Hyperosmolality and hypernatremia; I13.0 Hypertensive heart and chronic kidney disease with heart failure and stage 1 through stage 4 chronic kidney disease, or unspecified chronic kidney disease; J44.0 Chronic obstructive pulmonary disease with (acute) lower respiratory infection; J44.1 Chronic obstructive pulmonary disease with (acute) exacerbation; E87.2 Acidosis; Z51.5 Encounter for palliative care; K70.11 Alcoholic hepatitis with ascites; D64.9 Anemia, unspecified; E83.42 Hypomagnesemia; G31.2 Degeneration of nervous system due to alcohol; R79.89 Other specified abnormal findings of blood chemistry; I25.10 Atherosclerotic heart disease of native coronary artery without angina pectoris; F10.20 Alcohol dependence, uncomplicated; Z95.5 Presence of coronary angioplasty implant and graft; F41.9 Anxiety disorder, unspecified; X58.XXXA Exposure to other specified factors, initial encounter; F32.9 Major depressive disorder, single episode, unspecified; K21.9 Gastro-esophageal reflux disease without esophagitis; Z72.0 Tobacco use; R32 Unspecified urinary incontinence; E87.6 Hypokalemia; T19.0XXA Foreign body in urethra, initial encounter; E83.41 Hypermagnesemia; N18.9 Chronic kidney disease, unspecified; N32.89 Other specified disorders of bladder